=== PATIENT | female | born 1950 | race Caucasian/White ===

== ENCOUNTER 2018-12-06 03:31 | Observation (INO) | payer OTHER ==
--- OUTSIDE RECORDS SUMMARY | 2018-12-06 03:33 | XMS REPORT | Summary of Care ---
:1950 Author Organization [facility] Address [id number] [place] [address]- Encounter HQ Francia_thang(FIN) [id number] Date(s): 03/31/18 - 03/31/18 [facility] [address] [place] [address]- [phone] Discharge Disposition: Home or Self Care Attending Physician: Cherry Thompson MD Referring Physician: Cherry Thompson MD Vital Signs Most recent to oldest 1 2 3 [Reference Range]: Height 157.48 cm (03/31/18 8:15 AM) Blood Pressure [90-140/60-90 145/51 mmHg 159/62 mmHg 156/72 mmHg mmHg] *HI* *HI* *HI* (03/31/18 11:00 AM) (03/31/18 10:45 AM) (03/31/18 10:30 AM) Respiratory Rate [14-20 14 BRMIN 23 BRMIN 15 BRMIN BRMIN] (03/31/18 11:00 AM) *HI* (03/31/18 10:30 AM) (03/31/18 10:45 AM) Weight 74.545 kg (03/31/18 8:15 AM) Body Mass Index 30.06 m2 (03/31/18 8:15 AM) Problem List Condition Effective Dates Status Health Status Informant Degenerative disc disease(Confirmed) Active 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) Hypothyroid(Confirmed) Active PVD - Peripheral vascular Active disease(Confirmed) Allergies, Adverse Reactions, Alerts Substance Reaction Severity Status NKDA Active Medications fentaNYL 87.5 mcg/hr transdermal film, extended release 87.5 microgram/hr=, TOP, Q72H, 0 Refill(s) Start Date: 03/31/18 Status: Orderedgabapentin 100 mg oral capsule 100 mg, PO, BID, 0 Refill(s) Start Date: 03/31/18 Status: OrderedJanumet 50 mg/1000 mg oral tablet 1 tab, PO, BID, 0 Refill(s) Start Date: 03/31/18 Status: Orderedlevothyroxine 100 mcg (0.1 mg) oral tablet 100mcg, PO, Daily, 0 Refill(s) Start Date: 03/31/18 Status: OrderedSodium Chloride 0.9% (titrate) 250 mL 250 mL, Rate: To prime line and flush remaining blood products., Dosing Weight 74.545, kg, Route: IV, Total Volume: 250, Start Date: 03/31/18 8:38:00 CDT, Duration: 30 day, Stop date: 04/30/18 8:37:00 CDT, Replace Every: 24 hr Start Date: 03/31/18 Stop Date: 03/31/18 Status: DiscontinuedSodium Chloride 0.9% IV 1,000 mL 1,000 mL, Rate: 21 ml/hr, Infuse over: 47.6 hr, Route: IV, Dosing Weight 74.545 kg, Total Volume: 1,000, Start date: 03/31/18 8:24:00 CDT, Duration: 30 day, Stop date: 04/30/18 8:23:00 CDT, 1.83, m2 Start Date: 03/31/18 Stop Date: 03/31/18 Status: Discontinued Results BLOOD BANK RESULTS Most recent to oldest [Reference Range]: 1 ABO/Rh O POS *Unknown* (03/31/18 8:17 AM) Antibody Scrn Negative (03/31/18 8:17 AM) Platelet product Product available 1 (03/31/18 8:38 AM) 1Result Comment: 03/31/2018 09:39 [id number] Blood available, notified MYECIA at 03/31/2018 09:39 by Brett^2.SPECIAL CHEMISTRY Most recent to oldest [Reference Range]: 1 Hgb A1C [<=5.6 %] 5.9 % *HI* (03/31/18 8:19 AM) Immunizations No data available for this section Procedures Procedure Date Related Diagnosis Body Site Status Arthroscopic knee operation Completed Cholecystectomy Completed Hysterectomy Completed Social History Social History Type Response Smoking Status Current every day smoker; Type: Cigarettes; Ready to change: No ; Concerns about tobacco use in household: No; Exposure to Tobacco Smoke smokes daily; Cigarette Smoking Last 365 Days Yes; Reg Smoking Cessation Counseling No ; To bacco use per day: 20; Number of years: 40; Total pack years: 40; Started at age: 27.0; entered on: 03/31/18 Assessment and Plan No data available for this section
--- OUTSIDE RECORDS SUMMARY | 2018-12-06 03:33 | XMS REPORT | Continuity of Care Document ---
:1950 Author Organization Interface Problems Problem Status Onset Classification Date Comments Source Date Reported ANEMIA Active 11/17/[address] K74.60 - Active 10/26/20 [facility] UNSPECIFIED [address] [place] [address] CIRRHOSIS OF LIVER NEW PT CONSULT- Active 09/18/[address] THROMBOCYTOPENIA Active 04/26/20 [place] [address] [place] EGD/COLON/MAC Active 03/28/20 [place] [address] [place] UNK Active 03/22/[address], [place] I86.8 I83.10/[address] Active 09/01/20 [address] 454.9 ASYMPTOMATIC Active 06/11/20 VARICOSE VEINS [address] Degenerative disc Active Problem 05/01/2018 [facility] disease [facility] Diabetes mellitus Active Problem 05/01/2018 [facility] associated with [facility] genetic syndrome [place] Hypothyroid Active Problem 05/01/2018 [facility] [place],[facility] PVD - Peripheral Active Problem 05/01/2018 [facility] vascular disease [facility] EPIGASTRIC PAIN Active [facility] CONSTIPATION, Active [facility] UNSPECIFIED [place] THROMBOCYTOPENIA, Active [facility] UNSPECIFIED [place] ENCNTR FOR GENERAL Active [facility] ADULT MEDICAL [facility] Medical W/ Center NAUSEA Active [facility] ANEMIA, UNSPECIFIED Active [facility] Medications Medication Details Route Status Patient Ordering Order Source Instructions Provider Date Sodium Chloride 250 mL, Inactive 0.9% (titrate) Rate: To 018 [place] 250 mL prime line and flush remaining blood products., Dosing Weight 74.545, kg, Route: IV, Total Volume: 250, Start Date: 03/31/18 8:38:00 CDT, Duration: 30 day, Stop date: 04/30/18 8:37:00 CDT, Replace Every: 24 hr Sodium Chloride 1,000 mL, Inactive 0.9% IV 1,000 mL Rate: 21 018 [place] ml/hr, Infuse over: 47.6 hr, Route: IV, Dosing Weight 74.545 kg, Total Volume: 1,000, Start date: 03/31/18 8:24:00 CDT, Duration: 30 day, Stop date: 04/30/18 8:23:00 CDT, 1.83, m2 Metformin 1 tab, PO, Active MH hydrochloride BID, 0 018 [place] 1000 MG / Refill(s) sitagliptin 50 MG Oral Tablet [Janumet ] levothyroxine 100mcg, PO, Active MH 100 mcg (0.1 mg) Daily, 0 018 [place] oral tablet Refill(s) gabapentin 100 100 mg, PO, Active MH MG Oral Capsule BID, 0 018 [place] Refill(s) 72 HR Fentanyl 87.5 Active MH 0.0875 MG/HR microgram/h 018 [place] Transdermal r=, TOP, Patch Q72H, 0 Refill(s) Allergies, Adverse Reactions, Alerts Substance Category Reaction Severity Reaction Status Date Comments Source type Reported Immunizations Immunization Date Given Site Status Last Updated Comments Source Results Order Name Results Value Reference Date Interpretation Comments Source Range Bone Bone Marrow Patient Name: RACHID FABIAN 04/28 - [facility] Marrow Bio/Aspr - [place] Bio/Aspr : 1950; Age: 67 years Female MR: [id number] Read by: Daniela Martinez MD Dictated Date/time: 04/28/18 11:22 Electronically Signed by: Daniela Martinez MD 04/28/18 11:25 FINAL REPORT PROCEDURE: CT-guided bone marrow biopsy of the left ilium CLINICAL INFORMATION: Thrombocytopenia CONSENT: The procedure, risks, benefits and alternatives were discussed with the patient and written informed consent was obtained. A "time out" was performed per protocol prior to the procedure. TECHNIQUE: welding machine operator helper gas: Dr. Martinez Preoperative diagnosis: Thrombocytopenia Postoperative diagnosis: Same DLP: 626.53 mGycm Estimated blood loss: Minimal Moderate sedation: I supervised moderate sedation during this procedure. The patient was continuously monitored by a nurse using automated blood pressure , electrocardiogram, and pulse oximetry. The mod erate sedation record is permanently stored in the hospital information system. The personal supervised moderate sedation time was 4 minutes. Medications administered: Versed 0.5 mg IV and Fentanyl 25 mcg IV. The patient was placed in a prone position on the CT table. The left upper gluteal region was prepped and draped with sterile technique and the skin was anesthetized with 1% lidocaine. Under CT guidance, an 11-gauge bone biopsy needle was advanced into the left iliac bone. Approximately 12 mL of bone marrow aspirate was obtained. Subsequently, the biopsy needle was repositioned and a core sample obtained. Both the core and marrow aspirate were given to the mechanical engineering technician. The needles were removed and sterile dressing applied. Patient tolerated the procedure well and transferred to the recovery room in stable condition. IMPRESSION: Successful CT-guided bone marrow biopsy. SL: [id number] Retroperit Retroperiton RETROPERITONEAL COMPLETE ULTRASOUND 04/20 - [facility] paige eal Complete /2017 [facility] US US HISTORY: N18.3 Chronic kidney disease, stage 3 (moderate) - ckd stage 3; Read by: Oniel Luis MD Dictated Date/time: 04/20/18 14:36 Electronically Signed by: Oniel Luis MD 04/20/18 14:37 FINAL REPORT COMPARISON: None available. TECHNIQUE: Multiple longitudinal and transverse real time sonographic images of the kidneys and urinary bladder are obtained. FINDINGS: KIDNEYS: The kidneys are normal in size, shape, contour, and position. The cortices are normal in thickness and the corticomedullary differentiation is maintained. There is no hydronephrosis, nephrolithiasis, or abnormal perinephric collections. The right kidney measures 9.0 x 3.8 x 4.9 cm. The left kidney measures 10.5 x 4.3 x 5.1 cm. BLADDER: The bladder is well-distended and unremarkable. IVC/AORTA/PROXIMAL COMMON ILIAC ARTERIES: Visualized portions normal. Iliacs obscured by bowel gas. IMPRESSION: Normal retroperitoneal ultrasound. SL: [id number] Abdomen Abdomen ULTRASOUND ABDOMEN COMPLETE 04/20 - [facility] complete complete US /2017 [place] US HISTORY: R11.0 Nausea/ D69.6 Thrombocytopenia, unspecified - nausea/ thrombocytopenia; Read by: Oniel Luis MD Dictated Date/time: 04/20/18 14:37 Electronically Signed by: Oniel Luis MD 04/20/18 14:39 FINAL REPORT COMPARISON: None available. TECHNIQUE: Grayscale and limited color sonographic evaluation of the abdomen was performed with standard technique. FINDINGS: LIVER: The visualized liver shows normal contour, size, and morphology without focal lesions. Normal hepatic echotexture. BILE DUCTS: The intrahepatic and extrahepatic bile ducts are not dilated with the common bile duct measuring 5 mm. GALLBLADDER: Gallbladder has been removed. PANCREAS: The pancreas body is normal, the head and tail are obscured by bowel gas. SPLEEN: The spleen is moderately enlarged and measures 19.0 x 5.5 x 6.5 cm. KIDNEY: The right kidney measures 9.6 x 4.1 x 4.9 cm. The left kidney measures 10.5 x 4.5 x 5.4 cm. There is normal renal contour and morphology, with normal parenchymal echotexture. There is no hydronephrosis. AORTA AND INFERIOR VENA CAVA: Visualized portions appear normal. ASCITES: There is no abdominal ascites. IMPRESSION: 1. Moderate splenomegaly. 2. Otherwise normal study. SL: [id number] BLOOD BANK Platelet Product available 1 03/31 Result Comment: 2017 09:39 [id number] RESULTS product /2018 Blood available, notified MYECIA at 03/31/2018 09:39 by D^2. [place] (03/31/18 8:38 AM) SPECIAL Hgb A1C 5.9 % <=5.6 % 03/31 CHEMISTRY /2017 [place] BLOOD BANK Antibody Negative 03/31 RESULTS Scrn /2017 [place] (03/31/18 8:17 AM) BLOOD BANK ABO/Rh O POS 03/31 RESULTS /2017 [place] Chest 2 Chest 2 PA and lateral chest: HISTORY: Preop FINDINGS: The cardiomediastinal silhouette, pulmonary vasculature and joe are within normal limits. The lungs and pleural spaces are clear. There are no significant osseous abnormalities. 09/26 - views DX views DX /2014 IMPRESSION: Read by: Mu Stoll MD Dictated Date/time: 09/26/15 11:44 Electronically Signed by: Mu Stoll MD 09/26/15 11:45 FINAL REPORT No acute radiographic abnormality in the chest. SL:13 Ext Lower Ext Lower DOPPLER BILATERAL LOWER EXTREMITIES (INSUFFICIENCY EVALUATION) 06/19 - Venous Venous /2014 Doppler Doppler Bilat US Bilat US Compression ultrasound of the lower extremity superficial and deep venous systems was done with flow measurements. Read by: Mu Stoll MD Dictated Date/time: 06/20/15 07:19 Electronically Signed by: Mu Stoll MD 06/20/15 07:25 FINAL REPORT The superficial and deep venous systems are patent and compressible without evidence of intraluminal thrombus. Varicosities and perforating veins were not demonstrated. The following vessel diameters and reflux measurements were obtained: RIGHT LOWER EXTREMITY: Common femoral vein: No reflux. Mid femoral vein: 0.25 seconds reflux Popliteal vein: No reflux Lesser saphenous vein: Not demonstrated Great saphenous upper thigh: 4.8 mm, no reflux Great saphenous mid thigh: 4.1 mm, no reflux Great saphenous lower thigh: 5.0 mm, 0.10 seconds reflux Great saphenous upper calf: 4.2 mm, 0.25 seconds reflux Great saphenous mid calf: 2.6 mm, 0.31 seconds reflux Great saphenous lower le.8 mm, no reflux LEFT LOWER EXTREMITY: Common femoral: No reflux Mid femoral: No reflux Popliteal: No reflux. Lesser saphenous: Not demonstrated Great saphenous upper thigh: 3.3 mm, no reflux Great saphenous mid thigh: 2.7 mm, 0.19 seconds reflux Great saphenous lower thigh: 2.5 mm, no reflux Great saphenous upper calf: 1.7 mm, no reflux Great saphenous mid calf: 1.1 mm, 0.27 seconds reflux Great saphenous lower le.0 mm, 0.13 seconds IMPRESSION: 1. No evidence of superficial or deep vein thrombosis. 2. No significant superficial or deep venous incompetence. SL:13 Vital Signs Vital Sign Value Date Comments Source Systolic (mm Hg) 145 03/31/[address] [facility] Diastolic (mm Hg) 51 03/31/[address] [facility] Respitory Rate 14 03/31/[address] [facility] Systolic (mm Hg) 159 03/31/[address] [facility] Diastolic (mm Hg) 62 03/31/[address] [facility] Respitory Rate 23 03/31/[address] [facility] Systolic (mm Hg) 156 03/31/[address] [facility] Diastolic (mm Hg) 72 03/31/[address] [facility] Respitory Rate 15 03/31/[address] [facility] Weight 74.545 03/31/[address] [facility] BMI Calculated 30.06 03/31/[address] [facility] Height 157.48 cm 03/31/[address] [facility] Encounters Location Location Encounter Encounter Reason Attending ADM DC Status Source Details Type Number For Provider Date Date Visit [facility] Outpatient [id number] Jorge 06/19 06/20 Hi[place] 0 Elias /2014 [facility] Bedded [id number] Sri Ryan 03/31 03/31 [place] [facility] 3 [facility] Outpt Diag [id number] Sri Ryan 04/20 04/21 [facility] [id number] Newton Amin 04/28 04/29 Hiren [facility] Procedures Procedure Code Date Perfomer Comments Source Arthroscopic knee [id number] [facility] operation [place] Cholecystectomy [id number] [facility] Hysterectomy [id number] [facility] Arthroscopic knee [id number] [facility] operation Cholecystectomy [id number] [facility] Hysterectomy [id number] [facility]
--- OUTSIDE RECORDS SUMMARY | 2018-12-06 03:33 | XMS REPORT | Summary of Care ---
:1950 Author Organization [facility] Address [address] [place], [place] [address]- Encounter HQ Encntr_alias(FIN) [id number] Date(s): 06/19/15 - 06/19/15 [facility] [id number] [place] [address]- Discharge Disposition: Home Attending Physician: Jorge Griffin MD Referring Physician: Jorge Griffin MD Vital Signs No data available for this section Problem List No data available for this section Allergies, Adverse Reactions, Alerts Substance Reaction Severity Status NKDA Active Medications No data available for this section Results No data available for this section Immunizations No data available for this section Procedures No data available for this section Social History No data available for this section Assessment and Plan No data available for this section
--- OUTSIDE RECORDS SUMMARY | 2018-12-06 03:34 | XMS REPORT ---
:1950 Author [facility] Address [address] [place] [address] Dr. Paris [address] [place] [address] Care Team Providers Name Role Phone Unavailable Unavailable Unavailable Payers Payer Name Policy Type Policy Number Effective Date Expiration Date Problems This patient has no known problems. Allergies, Adverse Reactions, Alerts Allergy Allergy Status Severity Reaction(s) Onset Inactive Treating Comments Name Type Date Date Clinician No Known DA Active U 2018-10 Allergies -04 00:00:0 0 No Known DA Active U 2015-06 Allergies - 00:00:0 0 Medications This patient has no known medications.
--- OUTSIDE RECORDS SUMMARY | 2018-12-06 03:34 | XMS REPORT | Summary of Care ---
:1950 Author Organization [facility] Address [address] [place] [address]- Encounter HQ Patintr_thang(FIN) [id number] Date(s): 04/28/18 - 04/28/[address] [phone] [phone] Discharge Disposition: Home or Self Care Attending Physician: Newton Amin MD Referring Physician: Newton Amin MD Vital Signs No data available for this section Problem List Condition Effective Dates Status Health [...] Completed Social History Social History Type Response Alcohol Never Smoking Status Current every day smoker; Type: Cigarettes; Ready to change: No ; Concerns about tobacco use in household: No; Exposure to Tobacco Smoke smokes daily; Cigarette Smoking Last 365 Days Yes; Reg Smoking Cessation Counseling No ; To bacco use per day: 20; Number of years: 40; Total pack years: 40; Started at age: 27.0; entered on: 04/28/18 Assessment and Plan No data available for this section
--- OUTSIDE RECORDS SUMMARY | 2018-12-06 03:34 | XMS REPORT | Summary of Care ---
:1950 Author Organization [facility] [place] Address [address] [place], [place] [address]- Encounter HQ Encntr_alias(FIN) [id number] Date(s): 04/20/18 - 04/20/18 [facility] [address], [address] [place] [address]- [phone] Discharge Disposition: Home or Self Care Attending Physician: Cherry Thompson MD Vital Signs No data available for [...]
[2018-12-06 04:10] LABS: Absolute Lymphocytes (CBC) 1.1 K/uL (0.7-4.9); Absolute Monocytes 0.3 K/uL (0.1-1.3); Absolute Neutrophil 2.6 K/uL (1.8-8.0); Basophils % 1.4 % (0-1.3); Eosinophils % 4.8 % (0-4.4); Hematocrit 27.5 % (36.0-45.0); Lymphocytes % 24.7 % (15.3-44.8); MPV 10.4 fL (7.6-11.3); Monocytes % 7.5 % (3.3-12.3); RBC Red Blood Cell Count 3.03 M/uL (3.86-4.86)
[2018-12-06 04:14] LABS: Protime INR 1.16
[2018-12-06 04:31] LABS: ALT/SGPT 13 U/L (12-78); AST/SGOT 9 U/L (15-37); Alkaline Phosphatase 77 U/L (45-117); BUN Blood Urea Nitrogen 23 mg/dL (7-18); Bicarbonate 26 mmol/L (21-32); Bilirubin Direct 0.1 mg/dL (0-0.2); Bilirubin Total 0.3 mg/dL (0.2-1.0); Glucose Level 199 mg/dL (74-106); Magnesium 1.8 mg/dL (1.8-2.4); NT PRO-BNP 1466 pg/mL (<125); Potassium 3.8 mmol/L (3.5-5.1); Protein, Total 6.3 g/dL (6.4-8.2); Sodium Level 145 mmol/L (136-145); Troponin (Emerg Dept Use Only) < 0.02 ng/mL (0.0-0.045)
[2018-12-06 05:11] LABS: Anisocytosis 1+; Blood Morphology Comment NOTED (NOT SEEN); Platelet Estimate DECR; Teardrop Cell 1+; Urine White Blood Cell Casts OK
--- NOTE | 2018-12-06 05:45 | EDPHYS ---
Physician Documentation [facility] Name: Nancy Mai Age: 68 yrs Sex: Female : 1950 Arrival Date: 12/06/2018 Time: 03:38 Bed 7 Private MD: ED Physician Louis Camacho HPI: 12/06 03:41 This 68 yrs old Female presents to ER via Unassigned with complaints of chest rn pain, sob. 03:41 The patient or guardian reports chest pain that is located primarily in the substernal rn area. Onset: 2.5 hour(s) ago. The pain does not radiate. Associated signs and symptoms: Pertinent positives: shortness of breath, Pertinent negatives: abdominal pain, cough, diaphoresis, dizziness, lightheadedness, nausea, near syncope, palpitations, recent travel. The chest pain is described as a heaviness. The chest pain is described as sharp. Duration: The patient or guardian reports a single episode, that is still ongoing. Modifying factors: The symptoms are alleviated by nothing. the symptoms are aggravated by nothing. Severity of pain: At its worst the pain was moderate in the emergency department the pain has improved. The patient has experienced similar episodes in the past. Reports substernal chest pain, sharp and heavy, assoc with mild sob, symptoms slowly improving without meds, reports 2 cardiac stents placed 3 months ago. No fever/cough. . Historical: - Allergies: 03:53 No Known Allergies; jd3 - Home Meds: 03:53 fentanyl 75 mcg/hr transdermal pt72 1 patch every 72 hours [Active]; gabapentin 400 mg jd3 oral cap four times a day [Active]; clopidogrel 75 mg oral tab [Active]; levothyroxine 175 mcg tab [Active]; amlodipine 5 mg tab [Active]; isosorbide mononitrate 60 mg Oral Tb24 [Active]; atorvastatin 80 mg oral tab [Active]; ferrous sulfate 325 mg (65 mg iron) Oral tab [Active]; carvedilol 25 mg oral tab [Active]; - PMHx: 03:53 Hypertension; High Cholesterol; Diabetes - NIDDM; Hepatitis; Cirrhosis; jd3 - PSHx: 03:53 Heart stents; Cholecystectomy; left knee; jd3 - Immunization history:: Adult Immunizations up to date. - Social history:: Smoking status: Patient uses tobacco products, smokes 0.25 packs per day. - Family history:: not pertinent. - Ebola Screening: : Patient negative for fever greater than or equal to 101.5 degrees Fahrenheit, and additional compatible Ebola Virus Disease symptoms. - Hospitalizations: : No recent hospitalization is reported. ROS: 03:41 Constitutional: Negative for fever, chills, and weight loss, Eyes: Negative for injury, rn pain, redness, and discharge, Neck: Negative for injury, pain, and swelling, Cardiovascular: Negative for palpitations Respiratory: Negative for cough, wheezing, and pleuritic chest pain, Abdomen/GI: Negative for abdominal pain, nausea, vomiting, diarrhea, and constipation, Back: Negative for injury and pain, MS/Extremity: Negative for injury and deformity, Skin: Negative for injury, rash, and discoloration, Neuro: Negative for headache, weakness, numbness, tingling, and seizure. Exam: 03:41 Constitutional: This is a well developed, well nourished patient who is awake, alert, rn and in no acute distress. Head/Face: Normocephalic, atraumatic. Eyes: Pupils equal round and reactive to light, extra-ocular motions intact. Lids and lashes normal. Conjunctiva and sclera are non-icteric and not injected. Cornea within normal limits. Periorbital areas with no swelling, redness, or edema. ENT: MMM Cardiovascular: Regular rate and rhythm, + mild systolic murmur Respiratory: Lungs have equal breath sounds bilaterally, clear to auscultation. No increased work of breathing, no retractions or nasal flaring. Abdomen/GI: soft, non-tender MS/ Extremity: Pulses equal, no cyanosis. Mild increased edema RLE compared to LLE. Neuro: Awake and alert, GCS 15, oriented to person, place, time, and situation. Cranial nerves II-XII grossly intact. Motor strength 5/5 in all extremities. Sensory grossly intact. Vital Signs: 03:46 BP 154 / 60; Pulse 70; Resp 19 S; Temp 98.0(O); Pulse Ox 96% on R/A; Weight 86.64 kg jd3 (R); Height 5 ft. 4 in. (162.56 cm) (R); Pain 0/10; 04:40 BP 131 / 42; Pulse 60; Resp 18 S; Pulse Ox 95% on R/A; jd3 05:31 BP 140 / 52; Pulse 58; Resp 15 S; Pulse Ox 96% on R/A; jd3 06:31 BP 128 / 48; Pulse 63; Resp 15 S; Pulse Ox 94% on R/A; jd3 07:26 BP 139 / 54; Pulse 60; Resp 18; Temp 97.8; Pulse Ox 96% on R/A; ph 03:46 Body Mass Index 32.78 (86.64 kg, 162.56 cm) jd3 MDM: 03:38 Patient medically screened. rn 05:41 Differential diagnosis: acute myocardial infarction, acute pericarditis, coronary rn artery disease chest wall pain, costochondritis, pericarditis, pleurisy, pneumonia, pneumothorax, pulmonary embolus, stable angina, unstable angina. 05:42 The patient was given aspirin in the Emergency Department. Data reviewed: vital signs, rn nurses notes, lab test result(s), EKG, radiologic studies, CT scan, plain films, and as a result, I will admit patient. Counseling: I had a detailed discussion with the patient and/or guardian regarding: the historical points, exam findings, and any diagnostic results supporting the discharge/admit diagnosis, lab results, radiology results, the need for further work-up and treatment in the hospital. Response to treatment: the patient's symptoms have mildly improved after treatment, and as a result, I will admit patient. Admission orders: after a detailed discussion of the patient's condition and case, the admit orders are written by me. 05:42 ED course: Pt with neg troponin, elevated BNP, elevated d-dimer, admitted to Dr. Josh fontenot pending CT chest and u/s. . 12/06 03:39 Order name: Basic Metabolic Panel rn 12/06 03:39 Order name: CBC with Diff; Complete Time: 05: rn 12/06 03:39 Order name: LFT's; Complete Time: 05: rn 12/06 03:39 Order name: Magnesium; Complete Time: 05: rn 12/06 03:39 Order name: NT PRO-BNP; Complete Time: 05: rn 12/06 03:39 Order name: PT-INR; Complete Time: 05: rn 12/06 03:39 Order name: Troponin (emerg Dept Use Only); Complete Time: 05:05 rn 12/06 03:39 Order name: Basic Metabolic Panel; Complete Time: 05:05 [facility] 12/06 03:41 Order name: D-Dimer rn 12/06 03:42 Order name: D-Dimer; Complete Time: 05:05 [facility] 12/06 04:13 Order name: CBC Smear Scan; Complete Time: 05:30 [facility] 12/06 06:12 Order name: Lipid Profile [facility] 12/06 06:12 Order name: Lipid Profile [facility] 12/06 06:12 Order name: Troponin I [facility] 12/06 03:39 Order name: XRAY Chest (1 view) rn 12/06 03:39 Order name: EKG; Complete Time: 03:40 rn 12/06 03:39 Order name: Cardiac monitoring; Complete Time: 03:47 rn 12/06 03:39 Order name: EKG - Nurse/Tech; Complete Time: 03:47 rn 12/06 03:39 Order name: IV Saline Lock; Complete Time: 04:04 rn 12/06 03:39 Order name: Labs collected and sent; Complete Time: 04:04 rn 12/06 03:39 Order name: O2 Per Protocol; Complete Time: 03:47 rn 12/06 03:39 Order name: O2 Sat Monitoring; Complete Time: 03:47 rn 12/06 05:06 Order name: CT Chest For PE Angio rn 12/06 05:37 Order name: Extrem Venous W Compression Pedro US rn 12/06 06:11 Order name: CONS Physician Consult [facility] 12/06 06:11 Order name: Heart Healthy [facility] 12/06 06:12 Order name: Troponin I [facility] 12/06 06:12 Order name: Troponin I [facility] Administered Medications: 05:46 Drug: Aspirin Chewable Tablet 324 mg Route: PO; tl2 06:36 Follow up: Response: No adverse reaction jd3 05:50 Drug: Nitroglycerin 0.4 mg Route: Sublingual; jd3 06:37 Follow up: Response: No adverse reaction jd3 Disposition: 12/06/18 05:44 Hospitalization ordered by Rose Moreno for Observation. Preliminary diagnosis is Chest pain, unspecified. - Bed requested for Telemetry/MedSurg (observation). - Status is Observation. ph - Condition is Stable. - Problem is new. - Symptoms have improved. UTI on Admission? No Signatures: Dispatcher [employer] EDMS Louis Camacho MD MD rn Hall, Patricia, RN RN ph Anastasiia Galdamez, RN RN Yamileth Godwin, RN RN tl2 Jay Helm RN RN jd3 Corrections: (The following items were deleted from the chart) 06:21 05:44 Hospitalization Ordered by Rose Moreno MD for Observation. Preliminary cg diagnosis is Chest pain, unspecified. Bed requested for Telemetry/MedSurg (observation). Status is Observation. Condition is Stable. Problem is new. Symptoms have improved. UTI on Admission? No. rn 06:22 06:21 12/06/2018 05:44 Hospitalization Ordered by Rose Moreno MD for Observation. cg Preliminary diagnosis is Chest pain, unspecified. Bed requested for Telemetry/MedSurg (observation). Status is Observation. Condition is Stable. Problem is new. Symptoms have improved. UTI on Admission? No. cg 07:49 06:22 12/06/2018 05:44 Hospitalization Ordered by Rose Moreno MD for Observation. ph Preliminary diagnosis is Chest pain, unspecified. Bed requested for Telemetry/MedSurg (observation). Status is Observation. Condition is Stable. Problem is new. Symptoms have improved. UTI on Admission? No. cg
--- NOTE | 2018-12-06 05:45 | ER ---
Nurse's Notes [facility] Name: Nancy Mai Age: 68 yrs Sex: Female : 1950 Arrival Date: 12/06/2018 Time: 03:38 Bed 7 Private MD: Diagnosis: Chest pain, unspecified Presentation: 12/06 03:43 Presenting complaint: EMS states: "She woke up today at 0100 with sudden shortness of jd3 breath with right arm pain and shortness of breath. by the time we got here the right arm pain was gone, but she still reports shortness of breath. She also reports she has a chronic bleeding disorder in which she has to receive blood for and it could be that.". Transition of care: patient was not received from another setting of care. Onset of symptoms was December 06, 2018. Risk Assessment: Do you want to hurt yourself or someone else? Patient reports no desire to harm self or others. Initial Sepsis Screen: Does the patient meet any 2 criteria? No. Patient's initial sepsis screen is negative. Does the patient have a suspected source of infection? No. Patient's initial sepsis screen is negative. Care prior to arrival: None. 03:43 Method Of Arrival: EMS: [facility] jd3 03:43 Acuity: [facility] 2 jd3 Historical: - Allergies: 03:53 No Known Allergies; jd3 - Home Meds: 03:53 fentanyl 75 mcg/hr transdermal pt72 1 patch every 72 hours [Active]; gabapentin 400 mg jd3 oral cap four times a day [Active]; clopidogrel 75 mg oral tab [Active]; levothyroxine 175 mcg tab [Active]; amlodipine 5 mg tab [Active]; isosorbide mononitrate 60 mg Oral Tb24 [Active]; atorvastatin 80 mg oral tab [Active]; ferrous sulfate 325 mg (65 mg iron) Oral tab [Active]; carvedilol 25 mg oral tab [Active]; - PMHx: 03:53 Hypertension; High Cholesterol; Diabetes - NIDDM; Hepatitis; Cirrhosis; jd3 - PSHx: 03:53 Heart stents; Cholecystectomy; left knee; jd3 - Immunization history:: Adult Immunizations up to date. - Social history:: Smoking status: Patient uses tobacco products, smokes 0.25 packs per day. - Family history:: not pertinent. - Ebola Screening: : Patient negative for fever greater than or equal to 101.5 degrees Fahrenheit, and additional compatible Ebola Virus Disease symptoms. - Hospitalizations: : No recent hospitalization is reported. Screenin:53 Abuse screen: Denies threats or abuse. Nutritional screening: No deficits noted. jd3 Tuberculosis screening: No symptoms or risk factors identified. Fall Risk Ambulatory Aid- None/Bed Rest/Nurse Assist (0 pts). Gait- Weak (10 pts.). Mental Status- Oriented to own ability (0 pts). Total Samson Fall Scale indicates No Risk (0-24 pts). Assessment: 03:47 General: Appears uncomfortable, Behavior is calm, cooperative, appropriate for age. jd3 Pain: Complains of pain in chest Quality of pain is described as pressure. Neuro: Level of Consciousness is awake, alert, obeys commands, Oriented to person, place, time, situation. Cardiovascular: Capillary refill < 3 seconds Patient's skin is warm and dry. Rhythm is regular. Respiratory: Reports shortness of breath Airway is patent Respiratory effort is even, unlabored, Respiratory pattern is regular, symmetrical, Breath sounds are clear bilaterally. GI: No signs and/or symptoms were reported involving the gastrointestinal system. : No signs and/or symptoms were reported regarding the genitourinary system. EENT: No signs and/or symptoms were reported regarding the EENT system. Derm: Skin is intact, Skin is dry, Skin is normal, Skin temperature is warm. Musculoskeletal: Circulation, motion, and sensation intact. Range of motion: intact in all extremities. 04:41 Reassessment: Patient appears in no apparent distress at this time. Patient and/or jd3 family updated on plan of care and expected duration. Pain level reassessed. Patient is alert, oriented x 3, equal unlabored respirations, skin warm/dry/pink. Patient states feeling better. 05:32 Reassessment: Patient appears in no apparent distress at this time. Patient and/or jd3 family updated on plan of care and expected duration. Pain level reassessed. Patient is alert, oriented x 3, equal unlabored respirations, skin warm/dry/pink. 06:32 Reassessment: Patient appears in no apparent distress at this time. Patient and/or jd3 family updated on plan of care and expected duration. Pain level reassessed. Patient is alert, oriented x 3, equal unlabored respirations, skin warm/dry/pink. Dr. Moreno at bedside. Vital Signs: 03:46 BP 154 / 60; Pulse 70; Resp 19 S; Temp 98.0(O); Pulse Ox 96% on R/A; Weight 86.64 kg jd3 (R); Height 5 ft. 4 in. (162.56 cm) (R); Pain 0/10; 04:40 BP 131 / 42; Pulse 60; Resp 18 S; Pulse Ox 95% on R/A; jd3 05:31 BP 140 / 52; Pulse 58; Resp 15 S; Pulse Ox 96% on R/A; jd3 06:31 BP 128 / 48; Pulse 63; Resp 15 S; Pulse Ox 94% on R/A; jd3 07:26 BP 139 / 54; Pulse 60; Resp 18; Temp 97.8; Pulse Ox 96% on R/A; ph 03:46 Body Mass Index 32.78 (86.64 kg, 162.56 cm) jd3 ED Course: 03:38 Patient arrived in ED. rn 03:38 Louis Camacho MD is Attending Physician. rn 03:43 Jay Helm RN is Primary Nurse. jd3 03:46 Triage completed. jd3 03:46 Arm band placed on. EKG completed in triage. Results shown to MD. jd3 03:54 Patient has correct armband on for positive identification. Bed in low position. Call jd3 light in reach. Side rails up X2. 03:55 Maintain EMS IV. Dressing intact. Good blood return noted. Site clean \\T\\ dry. Gauge \\T\\ john 3 site: 20 G in left hand. 04:04 X-ray completed. Portable x-ray completed in exam room. Patient tolerated procedure kw well. 04:05 XRAY Chest (1 view) In Process Unspecified. EDMS 04:20 Notified ED physician of a critical lab result(s). D Dimer 533. fc 05:29 Inserted saline lock: 20 gauge in right antecubital area, using aseptic technique. jd3 05:44 Rose Moreno MD is Hospitalizing Provider. rn 05:54 CT completed. Patient tolerated procedure well. Patient moved to CT via stretcher. Patient moved back from CT. 05:57 CT Chest For PE Angio In Process Unspecified. EDMS 07:35 No provider procedures requiring assistance completed. Patient admitted, IV remains in hb place. Administered Medications: 05:46 Drug: Aspirin Chewable Tablet 324 mg Route: PO; tl2 06:36 Follow up: Response: No adverse reaction jd3 05:50 Drug: Nitroglycerin 0.4 mg Route: Sublingual; jd3 06:37 Follow up: Response: No adverse reaction jd3 Outcome: 05:44 Decision to Hospitalize by Provider. rn 07:35 Admitted to Tele accompanied by tech, via wheelchair, room 229, with chart, Report hb called to MARIA LUZ Barksdale 07:35 Condition: stable 07:35 Instructed on the need for admit, Demonstrated understanding of instructions. 07:49 Patient left the ED. ph Signatures: Dispatcher [employer] EDMS Sanchez Brown Felicia, RN RN Louis Camacho MD MD rn Whitley, Kimberlee kw Hall, Patricia, RN RN Jana Hamilton RN RN Yamileth Godwin RN RN tl2 Jay Helm RN RN jd3 Corrections: (The following items were deleted from the chart) 06:33 06:32 Reassessment: Patient appears in no apparent distress at this time. Patient jd3 and/or family updated on plan of care and expected duration. Pain level reassessed. Patient is alert, oriented x 3, equal unlabored respirations, skin warm/dry/pink. Dr. Morales at bedside jd3
[2018-12-06] MEDS ORDERED: ASPIRIN 81 MG CHEWABLE TABLET ONE (05:54)
[2018-12-06] MEDS ORDERED: NITROGLYCERIN 0.4 MG/TAB SL ONE (05:58)
[2018-12-06] MEDS ORDERED: ACETAMINOPHEN 500 MG TAB PO PRN (06:07)
[2018-12-06] MEDS ORDERED: MORPHINE 4 MG/ML SYR IV PRN (06:07)
[2018-12-06] MEDS ORDERED: ALPRAZOLAM 0.25 MG TABLET PO PRN (06:07)
--- NOTE | 2018-12-06 06:59 | EKG ---
Test Date: 2018-12-06 Test Time: 03:39:37 [employer]: VICTOR HUGO MEASUREMENT RESULTS: Intervals: Rate: 60 DC: 152 QRSD: 88 QT: 446 QTc: 446 [place]: P: -8 DC: 152 QRS: -17 T: -37 INTERPRETIVE STATEMENTS: Normal sinus rhythm Minimal voltage criteria for LVH, may be normal variant Nonspecific T wave abnormality Abnormal ECG Compared to ECG 09/25/2011 06:01:24 Left ventricular hypertrophy now present T-wave abnormality now present ST (T wave) deviation no longer present Electronically Signed On 12-06-18 06:50:47 INSTRUCTIONAL RESOURCE TEACHER by Frank Rm
[2018-12-06] MEDS ORDERED: LEVOTHYROXINE SOD 0.075 MG TAB PO SCH (08:00)
[2018-12-06 08:03] VITALS: O2SAT 96
--- NOTE | 2018-12-06 08:04 | P.HP ---
Certification for Inpatient Patient admitted to: Observation With expected LOS: <2 Midnights Patient will require the following post-hospital care: None Practitioner: I am a practitioner with admitting privileges, knowledge of patient current condition, hospital course, and medical plan of care. Services: Services provided to patient in accordance with Admission requirements found in Title 42 Section 412.3 of the Code of Federal Regulations Patient History Date of Service: 12/06/18 Reason for admission: Chest pain rule out acute coronary syndrome History of Present Illness: Patient is a 68-year-old female came to the hospital with chest pain. Pain was mainly in the sternal region. Patient recently had cardiac catheterization with stent placed x2. Patient was started on Effient. Patient has been doing well up until this episode of chest pain. Patient came into the emergency room for further evaluation. Patient will be ruled out for acute coronary syndrome. Patient follows up with primary care provider and bible teacher in [place]. Allergies No Known Allergies Allergy (Verified 04/21/13 22:21) Home Medications: Duloxetine HCl [Cymbalta] 2 cap PO BID 04/22/13 Gabapentin 1 tab PO BID 04/22/13 Glimepiride 2 mg PO BID 04/22/13 Levothyroxine Sodium [Synthroid] 150 mcg PO DAILY 04/22/13 Lisinopril/Hydrochlorothiazide [Zestoretic 10-12.5 mg Tablet] 1 each PO DAILY Sitagliptin Phos/Metformin HCl [Janumet Xr 50-1,000 mg Tablet] 1 each PO BID Zolpidem Tartrate [Ambien*] 5 mg PO BEDTIME 04/22/13 Tizanidine [Zanaflex*] 4 mg PO BID 12/03/13 Fentanyl Patch [Duragesic Patch*] 100 mcg TD Q48H 04/22/14 Furosemide [Lasix*] 20 mg PO DAILY 04/22/14 Gabapentin [Neurontin*] 2 tab PO BEDTIME 04/22/14 Potassium Chloride [K-Dur] 10 meq PO DAILY 04/22/14 Promethazine Tab [Phenergan*] 25 mg PO Q6HP PRN 04/22/14 Albuterol Sulfate [Proair Hfa] 2 puff IH QID #1 hfa.aer.[email or web address] 04/24/14 Hydrocodone 10/APAP 325 [[place] 10/325*] 1 tab PO TID 12/31/14 Clindamycin HCl [Cleocin HCl *] 150 mg PO Q8H #15 cap 01/04/15 Smz./Tmp. [Bactrim Ds 800 MG/160 MG*] 1 tab PO BID #10 tab 01/04/15 - Past Medical/Surgical History Diabetic: Yes -: lower back pain -: Type 2 Non-Insulin Dependent Diabetes Mellitus -: Cellulitis -: cholecystectomy, hysterectomy, -: surgeries for broken R leg, left knee, right arm - Family History Father Medical History: Cancer - Social History Alcohol use: No CD- Drugs: No Caffeine use: Yes Review of Systems 10-point ROS is otherwise unremarkable Physical Examination - Vital Signs Temperature: 98.0 F Blood Pressure: 131/42 Pulse: 60 Respirations: 18 Pulse Ox (%): 98 - Physical Exam General: Alert, In no apparent distress, Oriented x3 HEENT: Atraumatic, Normocephalic, PERRLA, Mucous membr. moist/pink, EOMI Neck: Supple, 2+ carotid pulse no bruit, JVD not distended, No Thyromegaly, No LAD Respiratory: Clear to auscultation bilaterally, Normal air movement Cardiovascular: Normal pulses, Regular rate/rhythm, Normal S1 S2, No murmurs Capillary refill: <2 Seconds Gastrointestinal: Normal bowel sounds, Soft and benign, Non-distended, No tenderness Musculoskeletal: No clubbing, No swelling Integumentary: No rashes Neurological: Normal gait, Normal speech, Normal strength at 5/5 x4 extr, Normal tone, Sensation intact, Cranial nerves 3-12 intact - Studies Laboratory Data (last 24 hrs) 12/06/18 04:00: PT 13.7 H, INR 1.16 12/06/18 04:00: WBC 4.3, Hgb 9.0 L, Hct 27.5 L, Plt Count 81 L 12/06/18 04:00: Sodium 145, Potassium 3.8, BUN 23 H, Creatinine 1.27, Glucose 199 H, Magnesium 1.8, Total Bilirubin 0.3, AST 9 L, ALT 13, Alkaline Phosphatase 77 Assessment & Plan - Problems (Diagnosis) (1) Chest pain, rule out acute myocardial infarction Current Visit: Yes Status: Acute (2) Coronary artery disease Current Visit: Yes Status: Acute (3) History of intravascular stent placement Current Visit: Yes Status: Acute (4) Diabetes mellitus Onset Date: 01/01/15 Current Visit: No Status: Acute (5) Anemia Current Visit: Yes Status: Acute - Plan 1. Serial troponins and EKG 2. Cardiology consultation 3. Echocardiogram 4. Anti-platelet therapy, anti coagulation, beta-jarod, statin, and O2 as needed 5. IV morphine for pain 6. Nitro p.r.n. 7. Strict blood sugar control Discharge Plan: Home Plan to discharge in: 24 Hours - Advance Directives Does patient have a Living Will: No Does patient have a Durable POA for Healthcare: No - Code Status/Comfort Care Code Status Assessed: Yes Code Status: Full Code Critical Care: No Time Spent Managing PTS Care (In Minutes): 50
--- NOTE | 2018-12-06 08:11 | RAD REPORT ---
EXAM DESCRIPTION: US - Extrem Venous W Compress Pedro - 12/06/2018 7:07 am CLINICAL HISTORY: SWELLING Bilateral leg edema and swelling. COMPARISON: No comparisons TECHNIQUE: Real-time sonographic interrogation of the left and right lower extremity deep venous sys tems was performed. FINDINGS: Normal compressibility, flow augmentation, phasic flow and spontaneous flow is identified in both the left and right lower extremity deep venous systems. IMPRESSION: No sonographic evidence of left or right lower extremity deep venous thrombosis.
--- NOTE | 2018-12-06 08:14 | RAD REPORT ---
EXAM DESCRIPTION: CT - Chest For Pe Angio - 12/06/2018 6:40 am CLINICAL HISTORY: Chest pain. CHEST PAIN COMPARISON: No comparisons TECHNIQUE: CT angiogram of the pulmonary arteries was performed with MIP. All CT scans are performed using dose optimization technique as appropriate and may include automated exposure control or mA/KV adjustment according to patient size. FINDINGS: No evidence of pulmonary thromboembolism. No acute aortic finding demonstrated. Aortic atherosclerosis is present. Ground-glass opacity is present in both lungs probably representing mild interstitial pulmonary edema . Tiny sub centimeter nodules are present bilaterally. No focal infiltrate typical of pneumonia. Trace left pleural effusion. No concerning bony finding. IMPRESSION: No evidence of pulmonary thromboembolism. Trace left pleural effusion with probable mild interstitial pulmonary edema.
--- NOTE | 2018-12-06 08:52 | RAD REPORT ---
EXAM DESCRIPTION: RAD - Chest Single View - 12/06/2018 4:07 am CLINICAL HISTORY: Chest pain;Dyspnea Chest pain. COMPARISON: CHEST SINGLE VIEW dated 04/22/2013; CHEST SINGLE VIEW dated 09/25/2011 FINDINGS: Portable technique limits examination quality. Mild interstitial pulmonary edema versus interstitial pneumonitis noted. The heart is upper limit nor mal size. No displaced fractures.
[2018-12-06] MEDS ORDERED: ASPIRIN EC 81 MG TAB PO SCH (09:00)
[2018-12-06] MEDS ORDERED: DULOXETINE HCL PO SCH (09:00)
[2018-12-06] MEDS ORDERED: METOPROLOL TAR 50 MG TAB PO SCH (09:00)
[2018-12-06] MEDS: ENOXAPARIN 40 MG/0.4 ML SQ SCH ×2 (09:00→11:36)
[2018-12-06] MEDS ORDERED: FUROSEMIDE 40 MG/4 ML VIAL IV ONE (09:08)
[2018-12-06] MEDS: PRASUGREL (EFFIENT) 10 MG TAB PO SCH ×2 (11:40→12:55)
[2018-12-06 12:07] VITALS: BMI 32.8
--- NOTE | 2018-12-06 12:20 | ECHO ---
HEIGHT: 5 ft 4 in WEIGHT: 191 lb 0 oz DATE OF STUDY: 12/06/[address]: Rajiv Rehman MD 2-DIMENSIONAL: YES M.MODE: YES DOPPLER: YES COLOR FLOW: YES TDS: PORTABLE: DEFINITY: BUBBLE STUDY: DIAGNOSIS: CONGESTIVE HEART FAILURE/ AORTIC VALVE DISORDER CARDIAC HISTORY: CATHERIZATION: NO SURGERY: NO PROSTHETIC VALVE: NO PACEMAKER: NO MEASUREMENTS (cm) DIASTOLIC (NORMALS) SYSTOLIC (NORMALS) IVSd 1.3 (0.6-1.2) LA Diam 3.9 (1.9-4.0) LVEF 76% LVIDd 4.4 (3.5-5.7) LVIDs 2.4 (2.0-3.5) %FS 45% LVPWd 1.3 (0.6-1.2) Ao Diam 2.9 (2.0-3.7) 2 DIMENSIONAL ASSESSMENT: RIGHT ATRIUM: NORMAL LEFT ATRIUM: DILATED RIGHT VENTRICLE: NORMAL LEFT VENTRICLE: LEFT VENTRICULAR HYPERTROPHY TRICUSPID VALVE: NORMAL MITRAL VALVE: NORMAL PULMONIC VALVE: NORMAL AORTIC VALVE: STENOSIS PERICARDIAL EFFUSION: NONE AORTIC ROOT: NORMAL LEFT VENTRICULAR WALL MOTION: NORMAL DOPPLER/COLOR FLOW: MILD TRICUSPID REGURGITATION. NORMAL RIGHT VENTRICULAR SYSTOLIC PRESSURE. MILD MITRAL REGURGITATION. MODERATE AORTIC STENOSIS. PEAK GRADIENT 34 mmHg. MEAN GRADIENT 17 mmHg. ESTIMATED AORTIC VALVE AREA 1.3 CENTIMETERS SQUARED. MILD TO MODERATE AORTIC REGURGITATION. COMMENTS: NORMAL LEFT VENTRICULAR EJECTION FRACTION. LEFT VENTRICULAR HYPERTROPHY. DILATED LEFT ATRIUM. MODERATE AORTIC STENOSIS. MILD TO MODERATE AORTIC REGURGITATION. MILD MITRAL AND TRICUSPID REGURGITATION. TECHNOLOGIST: BRITTNEY ROSALES
--- NOTE | 2018-12-06 13:02 | CON ---
CARDIOLOGY CONSULT Reason For Admission: Dyspnea and chest pain. History Of Present Illness: Ms. Mai is 68. She has a very complicated past medical history, rece nt intracoronary stents, cirrhosis of the liver, and aortic valve disease. Her cardiologists who put the stents in were in [facility] and they recommended no further stents because she has significant blood loss, needs transfusions every week or so. She has a housing specialist whom she sees routinely in [facility] and they might have recognized that she apparently has some kind of a valvular heart problem that i s moderate and not severe and is followed with serial echocardiography that housing specialist also recomme nded not doing any further cardiac catheterizations because of the bleeding problem. She had 2 stent s placed in September of 2018. Her cirrhosis of the liver is nonalcoholic. Apparently, it is hepatic steatosis leading to cirrhosis and it seems to be part of the cause of her blood loss. Past Medical History: She has had a history of cholecystectomy and left knee surgery. Medications: Outpatient medications have been fentanyl patch, gabapentin, Plavix, levothyroxine, aml odipine, isosorbide mononitrate, atorvastatin 80, iron sulfate, and Coreg 25 b.i.d. Allergies: SHE REPORTS NO ALLERGIES. Social History: She was a 4-iirr-aql-day smoker until she had her stents placed in September. Since then, she smokes about 2 cigarettes a day. Physical Examination: General: 5 feet 4 inches, 191 pounds, obese, alert, oriented, pleasant. Neck: Left carotid has a transmitted murmur, it appears to be from aortic stenosis. I do not think it is a carotid bruit. Right carotid has no sound in it. Lungs: Do not reveal crackles or wheezes. Heart: Exam reveals a systolic ejection type murmur, little bit musical, but moderate pitched cresce ndo decrescendo. Abdomen: Soft. Extremities: Mild edema, distal pulses palpable. Neurological: Within normal limits. Diagnostic Data: A study of the leg veins with ultrasound revealed no evidence of DVT. A CT angiogr am of the chest was negative for pulmonary embolism. There is a small or trace left pleural effusion and evidence of mild interstitial edema on the chest x-ray and the CT scan. Laboratory Data: Reveals a hemoglobin of 9 and INR of 1.16. Troponins, serial troponins are normal. N-terminal proBNP is 1466. Impression: The patient developed some heart failure. Her symptoms all occurred about an hour after going to bed. I think the more supine position she assumed probably triggered all the symptoms she is having. I am going to recommend more diuresis, continuation of the other medicine she is on, yesenia barton an echocardiogram. If she needs a heart cath that should not be done in this hospital. Since her stents were put in September, perhaps it is best to stop Plavix an another month, but that is somethijoe g that she will probably review with her housing specialist as an outpatient about a month from now, but nazanin wade has a very complicated picture with coronary stenosis and extremely important need for anticoagulat ion, her antiplatelet therapy and a bleeding problem, so if any further interventions are done, it sh ould be done at a tertiary care center not in our hospital here. I think, what will help her symptom s is diuresis and we will initiate that. We will do an echocardiogram to evaluate the heart valve an d ejection fraction. NAZANIN/RITO Voice ID: [id number] Report ID: [id number]
[2018-12-06 14:40] VITALS: TEMP 97.7
[2018-12-06 16:39] LABS: RBC Red Blood Cell Count 3.1 M/uL (3.86-4.86)
[2018-12-06 17:03] LABS: Troponin I < 0.02 ng/mL (0.0-0.045)
[2018-12-06 17:04] LABS: Ferritin 29.3 ng/mL (8-388); Folic Acid, (Folate) 5.6 ng/mL (3.1-17.5); Transferrin 256 mg/dL (200-360)
[2018-12-06 17:36] VITALS: BP 143/63
[2018-12-07] MEDS ORDERED: FUROSEMIDE 40 MG TABLET PO SCH (09:00)
== END 2018-12-06 17:56 | disposition home or self-care (01) ==
LOC: ER 03:31 → ERHOLD 06:08 → 2ND 07:35
PROVIDERS: ADMIT Hospitalist; ATTEND Hospitalist
DX: R07.9 Chest pain, unspecified (principal); E11.9 Type 2 diabetes mellitus without complications; I25.10 Atherosclerotic heart disease of native coronary artery without angina pectoris; D64.9 Anemia, unspecified; Z95.5 Presence of coronary angioplasty implant and graft
CPT/HCPCS: 36415; 71045; 71275; 80048; 80061; 80076; 82607; 82728; 82746; 83540; 83615; 83735; 83880; 84466; 84484 ×3; 85025; 85044; 85379; 85610; 93005; 93306; 93970; 99285; G0378 ×2; J1650; J1940; Q9967